=== PATIENT | female | born 1945 | race Caucasian/White ===

== ENCOUNTER 2024-12-09 13:19 | Emergency (ER) | payer OTHER, SELFPAY ==
[2024-12-09 13:23] VITALS: BP 162/74
[2024-12-09 13:54] LABS: Hematocrit 37.6 % (37.0-47.0); Hemoglobin 12.7 g/dL (12.0-16.0); Mean Corp Hgb Conc. 33.8 g/dL (33.0-37.0); Mean Corpuscular Volume 92.2 fL (81.0-99.0); Nucleated Red Blood Cells % 0 %; Platelet Count 221 10^3/uL (130-400); Red Cell Dist. Width 13.1 % (11.5-14.5)
[2024-12-09] MEDS: KEPPRA 1500 MG IV (13:55)
[2024-12-09] MEDS: CARDENE 200 IV (13:55)
[2024-12-09 14:07] LABS: INR 1.03; PT 13.8 Sec (11.4-14.6)
[2024-12-09 14:08] LABS: APTT 29.0 Sec (23.4-35.0)
[2024-12-09 14:15] VITALS: BP 100/58
[2024-12-09 14:17] LABS: ALT (SGPT) 19 U/L (0-35); AST (SGOT) 24 U/L (14-36); Albumin 3.3 g/dl (3.5-5.0); Alkaline Phosphatase 44 U/L (38-126); Blood Urea Nitrogen 23 mg/dl (7-17); Calcium 9.1 mg/dl (8.4-10.2); Carbon Dioxide 24 mmol/L (22-30); Chloride 109 mmol/L (98-107); Glucose 115 mg/dl (70-99); Potassium 4.2 mmol/L (3.5-5.1); Sodium 138 mmol/L (135-145); Total Protein 5.6 g/dl (6.3-8.2); eGFR > 60.00
[2024-12-09 14:30] VITALS: BP 92/49
[2024-12-09 14:30] LABS: Troponin I < 0.012 ng/ml
--- NOTE | 2024-12-09 14:43 | ED.CVA ---
History of Present Illness
General
Chief Complaint: CVA/TIA Symptoms
Time Seen by Provider: 12/09/24 13:26
Onset of Stroke Symptoms
Onset of symptoms known: Yes
Date of onset of symptoms: 12/09/24
History of Present Illness
History of Present Illness:
79-year-old female with no reported past medical history presenting to the emergency department as a prehospital stroke alert. Patient arrives with who notes that at around 1145, patient was in the kitchen. He heard a loud thud and found
his on the ground. He himself has had a stroke in the past so recognizes symptoms of stroke. He noticed that she was not speaking or moving the right side of her body. Patient is not on any medications. No report of any blood thinners. No
report of any high blood pressure. Patient on arrival is unable to answer any questions given her critical condition.
Past History
Past History
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
ED Past Surgical History: Orthopedic, Tonsilectomy and Urological
Social History
Tobacco: Non-smoker
Alcohol: None
Drug: None
Personal:
Living: with family
Employment: Not employed
Phy Exam
Physical Exam
Physical Exam:
General: Alert, obvious neurologic deficits
HEENT: protecting airway
Neck: appears supple
CV: Normal heart rate, regular rhythm
Resp: No accessory muscle use, no increased work of breathing, lungs clear to auscultation bilaterally
Abd: Soft and non-distended, no tenderness to palpation
Extremities: No deformities, no swelling
Neuro: Awake and responsive to verbal stimuli. However, severely aphasic with right hemiparesis
: deferred
Rectal: deferred
Psych: Normal affect
Skin: Intact
Scores
NIH Stroke Score
Level of Consciousness: 0 - Alert
LOC Questions: 2-Neither correct
LOC Commands: 2-Performs neither correctly
Best Horizontal Gaze: 0-Normal
Visual Gonsales: 0=Normal, no visual loss
Facial Palsy: 1=Minor paralysis
Motor - Right Arm: 4=No movement
Motor - Left Arm: 4=No movement
Motor - Right Le-No movement
Motor - Left Le-No drift 5 seconds
Limb Ataxia: 0-Absent
Sensation: 2-Severe loss
Best Language: 3-Mute/global aphasia
Dysarthria: 2-Severe slurring
Extinction and Inattention: 0-No abnormality
NIH Total Score:: 24
Course
Orders/Labs/Results
Orders:
Orders
12/09/24 13:23
CT HEAD STROKE ALERT W/o Cont Urgent
Comment:
Reason For Exam: R hemiparesis, aphasia
12/09/24 13:26
Electrocardiogram (*1) Stat
Reason for Study: Other
Other Reason for Exam: neuro symptoms
CT HEAD/NECK ANG STROKE ALERT Urgent
Comment:
Reason For Exam: right weakness, aphasia
EKG- Treatment ONCE
12/09/24 13:44
Complete Blood Count/With Diff Urgent
Comprehensive Metabolic Panel Urgent
PTT Urgent
Prothrombin Time Urgent
Troponin I Urgent
12/09/24 13:45
Levetiracetam Injectable [Keppra] 1,500 mg IV NOW STA
12/09/24 13:46
Type+Screen Urgent
12/09/24 14:00
Nicardipine 40 mg/200 ml [Cardene] 40 mg in 200 ml IV PER PROTOCOL
Currently infusing. Continue current dose and titrate:: Yes
Titrate to keep:: Other
Titrate to keep other:: SBP 100-140
Titrate by mg/hr:: 2.5 mg/hr
Frequency of titrations (minutes):: 5-15 minutes
Maximum dose in mg/hr:: 15
Begin to taper infusion when:: Remained at goal for 2hrs
Taper by mg/hr:: 2.5 mg/hr
Frequency of taper (minutes) if patient maintains goal:: every 15-30 minutes
Taper to off?: Yes
If infusion off & no longer maintaining goal:: Contact Provider
Abnormal Lab Results
12/09/24
13:44
WBC 4.5 L 10^3/uL
(4.8-10.8)
RBC 4.08 L 10^6/uL
(4.20-5.40)
MCH 31.1 H pg
(27.0-31.0)
Absolute Lymphs (auto) 1.1 L 10^3/uL
(1.2-3.4)
Chloride 109 H mmol/L
(98-107)
BUN 23 H mg/dl
(7-17)
Glucose 115 H mg/dl
(70-99)
Total Protein 5.6 L g/dl
(6.3-8.2)
Albumin 3.3 L g/dl
(3.5-5.0)
12/09/24 13:44
12/09/24 13:44
Vital Signs
Initial and Last Documented VS:
Initial Vital Signs
Temp Pulse Resp BP Pulse Ox
98.1 F 62 17 162/74 97
12/09/24 13:23 12/09/24 13:23 12/09/24 13:23 12/09/24 13:23 12/09/24 13:23
Last Documented Vital Signs
Temp Pulse Resp BP Pulse Ox
98.1 F 62 14 104/51 99
12/09/24 13:23 12/09/24 14:45 12/09/24 14:45 12/09/24 14:45 12/09/24 14:47
MDM/Problems Addressed
MDM/Problems Addressed:
79-year-old female presenting to the emergency department as a prehospital stroke alert with right-sided weakness and aphasia. Vital signs are significant for high blood pressure.
Patient initially evaluated in examination room, however in keeping with stroke alert, sent immediately back to CT scan. Patient is supported by myself and neurology to CT given severe deficits. Patient yawning on arrival, with ultimate concern
for possible intracranial hemorrhage. Patient is a TNK candidate given timeframe of symptoms. Plan for CT head, CT angio, CT perfusion. NIH stroke scale at this time is greater than 20.
13:30 - Large intraventricular hemorrhage in the left basal ganglia on CT scan, suspect to be from hypertension. Patient with no underlying history of hypertension. Canceling CT perfusion. Will require transfer to a facility with neurosurgery.
Will discuss with family.
13:35 -in discussion with family, would prefer [facility]. Also offered [facility] or any facility of preference in the area that has neurosurgery.
13:45 -Case discussed with Dr. Mckeon from neurosurgery at [facility], accepted to facility. Recommending nicardipine drip for blood pressure control with systolic 100-140. Patient also with some shivering to the upper extremities, suspect be
more so from being cold versus seizure. No involvement to the lower extremities, no eye deviation. Will Keppra load.
14:20 -family updated, pending transfer.
14:50 - Air transport team at bedside. Maintaining airway and stable for transfer
*Pulse Oximetry
SaO2: 99
Oxygen Mode of Delivery: Room air
Patient hypoxic: no
*EKG
Interpreted by ED Provider?: Yes
EKG Intrepretation Date: 12/09/24
EKG Intrepretation Time: 14:43
Interpretation: normal
Heart Rate: 56
Rate: normal
Rhythm: sinus
[place]: normal axis
Interval: normal interval
QRS Pattern: normal QRS
Ischemia: no ischemia
*Critical Care Note
Total Time (30-74mins, 75-104mins- exclusive of procedures): 65
comment:
The high probability of a clinically significant, sudden or life threatening deterioration of the neurologic system(s) required my full and direct attention, intervention and personal management. The aggregate critical care time was 65 minutes. This
time is in addition to time spent performing reported procedures but includes the following:
[x] Data Review and interpretation
[x] Patient assessment and monitoring of vital signs
[x] Documentation
[x] Medication orders and management
ED Attending Note
-
Portions of this chart may have been created with voice recognition software.� Occasional wrong word or��sound alike� substitutions may have occurred due to the inherent limitations of voice recognition software.
Discharge Plan
Departure
Patient Disposition: Acute Care Hospital
Date of Disposition: 12/09/24
Time of Disposition: 14:41
Discharge Problem:
Spontaneous intraparenchymal intracranial hemorrhage, acute, Acute right hemiparesis, Aphasia
Prescriptions:
No Action
acetaminophen [Acetaminophen Extra Strength] 500 mg tablet
1,000 mg PO Q6H Qty: 30 0RF
Rx Instructions:
DO NOT exceed >4000 mg daily.
Referrals:
UNKNOWN - PT DOES,NOT KNOW [Family Provider]
Hospital Transfer
Other hospital: [facility]
I certify that the patient requires transfer: Yes
Discussed case with accepting physician: Dr. Mckeon
Reason for transfer: specialties available
Interventions
Interventions:
*Risk Screen - Suicide Last Done: 12/09/24 13:54
*General Assessment Last Done: 12/09/24 14:06
*Neglect/Abuse Screening Last Done: 12/09/24 13:54
*ED- Fall Risk Assessment Last Done: 12/09/24 14:06
*ED COVID-19 Vaccine History Last Done: 12/09/24 14:06
*Nursing Disposition Last Done: 12/09/24 15:00
ED- Pulmonary Assessment Last Done: 12/09/24 13:47
ED- Neurological Assessment Last Done: 12/09/24 13:47
ED- Cardiac Assessment Last Done: 12/09/24 13:47
ED Swallowing Screen Last Done: 12/09/24 13:47
Discharge Date and Time
Discharge Date/Time: 12/09/24 15:02
Print Language: ALBANIAN
[2024-12-09 14:45] VITALS: BP 104/51
== END 2024-12-09 15:02 | disposition short-term general hospital (02) ==
LOC: EMR 13:19
PROVIDERS: EMERGENCY PHYSICIAN Student in an Organized Health Care Education/Training Program
DX: G81.91 Hemiplegia, unspecified affecting right dominant side (principal); R47.01 Aphasia; Z86.73 Personal history of transient ischemic attack (TIA), and cerebral infarction without residual deficits
CPT/HCPCS: 99284; 96374; 70450; 70496; 70498; 80053; 84484; 85025; 85610; 85730; 86850; 86900; 86901; 93005; Q9967

== ENCOUNTER 2024-12-23 12:56 | Inpatient (IN) | payer OTHER, SELFPAY ==
[2024-12-22 19:07] LABS: Hematocrit 45.3 % (37.0-47.0); Hemoglobin 15.7 g/dL (12.0-16.0); Mean Corp Hgb Conc. 34.7 g/dL (33.0-37.0); Mean Corpuscular Volume 89.5 fL (81.0-99.0); Nucleated Red Blood Cells % 0 %; Platelet Count 337 10^3/uL (130-400); Red Cell Dist. Width 12.9 % (11.5-14.5)
[2024-12-22 19:14] LABS: INR 1.03; PT 13.8 Sec (11.4-14.6)
[2024-12-22 19:15] LABS: APTT 26.8 Sec (23.4-35.0)
--- NOTE | 2024-12-22 19:25 | ED.GENMED ---
History of Present Illness
General
Chief Complaint: Rectal Bleeding
Source: patient
Exam Limitations: none
Time Seen by Provider: 12/22/24 19:13
Nursing documentation reviewed up to this point in time: agreed with
History of Present Illness
History of Present Illness:
Note:
CHIEF COMPLAINT(S)
Unexplained dark stools, potential concern for gastrointestinal bleeding.
HISTORY OF PRESENT ILLNESS
The patient is an 79-year-old female with a past medical history of stroke with aphasia and right-sided weakness, peptic ulcer disease,who presents with dark stools noticed after lunch. provides most of history as patient is somewhat
limited in her speech due to recent stroke. Patient is currently staying in a rehab facility for stroke care and rehab. She is able to shake her head yes and no to certain questions. Per EMS, staff was changing her and noticed that the stools are
described as 'pretty dark.' There was some blood noted. There are no associated symptoms of dizziness, lightheadedness, abdominal pain, or fever reported. There is no associated syncopal episodes. The patient did not report recent fevers and her
appetite has been stable, as she continues to eat soft foods. A past stomach bleed was mentioned, attributed to a medication, although the specific medication name was not recalled. The patient has a history of stroke two years ago, treated at [facility], resulting in some residual weakness and speech difficulties. The patient has not followed up with Dr. James, her former physician, for approximately one and a half to two years.
ADDITIONAL HISTORY OBTAINED FROM SOURCES OTHER THAN THE PATIENT
The staff noted a change in stool color, leading to the patients presentation for evaluation. No dizziness or lightheadedness was reported by caregivers.
CHRONIC MEDICAL CONDITIONS SIGNIFICANTLY AFFECTING CARE
- History of stroke with residual motor and speech deficits.
PHYSICAL EXAM
- Nursing notes reviewed and vital signs reviewed.
General: Patient is well appearing and in no acute distress; non-toxic
Skin: Warm and dry, no rashes or lesions
Head: Normocephalic, atraumatic
Eyes: Sclera non-icteric. EOMs intact.
Cardiac: Tachycardia noted otherwise regular rhythm, no murmurs
Peripheral Vascular: No lower extremity swelling or edema
Pulm: Normal respiratory effort, no wheezes, rales, rhonchi
Abdomen: No abdominal tenderness to palpation no abdominal distention
Genitourinary: Large volume of heme positive dark stool mixed with clots of blood and bleeding noted. No evidence of hemorrhoids, no anal lesions.
Neuro: CN II-XII intact, no focal neurologic deficits.
Psychiatric: Appropriate mood and affect.
PLAN
- Perform blood work to assess any signs of bleeding.
- Conduct stool tests to detect hidden blood.
- Consider observation for any signs of ongoing bleeding.
DIFFERENTIAL DIAGNOSIS
The Differential Diagnosis includes, in no particular order and is not limited to:
1. Gastrointestinal bleeding.
2. Peptic ulcer bleed.
3. Colonic polyps or malignancy.
4. Diverticulosis.
5. Gastritis.
6. Esophagitis.
7. Coagulation disorder.
8. Iron supplements or bismuth ingestion.
9. Hemorrhoidal bleeding.
10. Ischemic bowel disease.
CHART REVIEW
Reviewed ER physician documentation from 12/09/2024 patient seen for prehospital stroke alert, large intraventricular hemorrhage seen on CT on the left side and she was transferred to facility with neurosurgery
Reviewed discharge summary from 10/06/2022 patient seen for peptic ulcer disease with active GI hemorrhage
MDM/DISPOSITION
The patient is an 79-year-old female with a past medical history of stroke with aphasia and right-sided weakness, peptic ulcer disease,who presents with dark stools noticed after lunch. On my exam in the evening, patient appears to have some
tachycardia noted in lower blood pressure. She has a previous history of upper GI bleed secondary to Ulcer/duodenal ulcer from frequent NSAID use. She is given IV fluids and Protonix. She has no abdominal tenderness distention but does have a
large volume of stool within the rectal vault with scattered blood and clots noted. No indication for CTA at this time. Case the ED attending. Patient will require further admission for observation and trending hemoglobin. Discussed case with
patient and family, patient excepted by hospitalist for admission.
Past History
Past History
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
ED Past Surgical History: Orthopedic, Tonsilectomy and Urological
Social History
Tobacco: Non-smoker
Alcohol: None
Drug: None
Personal:
Living: with family
Employment: Not employed
Phy Exam
Physical Exam
Physical Exam:
see hpi
Course
Orders/Labs/Results
Orders:
Orders
12/22/24 18:24
EKG [Electrocardiogram (*1)] Urgent
Reason for Study: Chest Pain
EKG- Treatment ONCE
12/22/24 18:54
Basic Metabolic Panel Urgent
Complete Blood Count/With Diff Urgent
PTT Urgent
Prothrombin Time Urgent
12/22/24 19:42
0.9% Sodium Chloride 1000 ml [Nss] 1,000 ml IV BOLUS
12/22/24 20:46
Pantoprazole [Protonix IV] 40 mg IV NOW STA
12/22/24 21:22
Type+Screen Urgent
BBK Wristband Number:
12/22/24 21:28
Admit/Transfer Patient As Directed
Co-Sign Provider:
Level of Care: Observation services
Assign to:: Telemetry
Physician / Group: Perez
Diagnosis: GI bleed
Reason for Telemetry: Other
Other Reason for Telemetry: GI bleed
Date to Stop Telemetry: 12/24/24
Time to Stop Telemetry: 11:00
Code Status As Directed
Resuscitation Status: Do not resuscitate
Reached after discussion with pt or family/Healthcare POA: Yes
PRN Pain Medication Management As Directed
May give lesser potent ordered pain med per pt: Yes
preference::
Protocol:: Medication orders for pain may be administered in a
manner that supports deferring to patient preference
when the pt is:
- Requesting an ordered lesser potent pain medication.
Least to most potent pain medications are defined
as: acetaminophen < NSAID < tramadol < opioids
(morphine, oxycodone, hydromorphone).
- Requesting a lesser dose of the same medication IF
ORDERED.
- Requesting a less intrusive route of administration
if both routes are prescribed by the provider (PO <
IV).
12/22/24 21:29
DNR Bracelet Application ONCE
12/23/24 00:17
Acetaminophen [Tylenol] 650 mg PO Q6HPRN PRN
Dextrose 5%/0.45%Sodchl 1000ML [D5/0.45%NaCl] 1,000 ml IV 75 mls/hr
Ondansetron Injectable [Zofran] 4 mg IV Q6HPRN PRN
12/23/24 00:17
Activity As Directed
Activity Level: With Assistance
INT (Intravenous Needle Therapy) As Directed
Comment: Place 2 IV catheters of the largest bore possible until stable
Orthostatic Vital Signs As Directed
Orthostatic VS Frequency: Now
Comment: then every four hours for twenty-four hours
Pneumatic Compression Sleeves As Directed
Type: Knee high
Vital Signs As Directed
Frequency: q8h
DX Deep Vein Thrombosis Video Routine
12/23/24 00:41
H&H Q6H
12/23/24 Breakfast
Clear Liquid
Liquid Modification: Moderately Thick (Honey)
Basic Metabolic Panel IN AM
12/23/24 06:17
H&H Q6H
12/23/24 08:00
Levetiracetam [Keppra] 1,500 mg PO BID
Pantoprazole [Protonix IV] 40 mg IV BID
12/23/24 12:17
H&H Q6H
12/24/24 11:00
DC Protocol for Telemetry ONCE
Abnormal Lab Results
12/22/24
18:54
MPV 10.5 H fL
(7.4-10.4)
Absolute Neuts (auto) 6.9 H 10^3/uL
(1.4-6.5)
Absolute Monos (auto) 0.7 H 10^3/uL
(0.1-0.6)
Lymphocytes % 15.7 L %
(20.5-51.1)
Chloride 110 H mmol/L
(98-107)
Carbon Dioxide 21 L mmol/L
(22-30)
BUN 29 H mg/dl
(7-17)
Glucose 146 H mg/dl
(70-99)
12/22/24 18:54
12/22/24 18:54
Vital Signs
Initial and Last Documented VS:
Initial Vital Signs
Temp
98.3 F
12/22/24 18:24
Last Documented Vital Signs
Temp Pulse Resp BP Pulse Ox
97.6 F 87 14 131/76 99
12/23/24 00:21 12/23/24 00:21 12/23/24 00:21 12/23/24 00:21 12/23/24 00:21
*Pulse Oximetry
Patient hypoxic: no
*Critical Care Note
Total Time (30-74mins, 75-104mins- exclusive of procedures): Not Applicable
ED Attending Note
-
Portions of this chart may have been created with voice recognition software.� Occasional wrong word or��sound alike� substitutions may have occurred due to the inherent limitations of voice recognition software.
Discharge Plan
Departure
Patient Disposition: Admit
Date of Disposition: 12/22/24
Time of Disposition: 20:51
Admit to: Med/Surg
Presentation/result/management discussed w/ accepting MD/DO: Hospitalist
Condition: Fair
Discharge Problem:
Acute gastrointestinal bleeding
Interventions
Interventions:
*Risk Screen - Suicide Last Done: 12/22/24 21:29
*General Assessment Last Done: 12/22/24 18:24
*Neglect/Abuse Screening Last Done: 12/22/24 20:11
*ED- Fall Risk Assessment Last Done: 12/22/24 18:24
*ED COVID-19 Vaccine History Last Done: 12/22/24 21:29
*Nursing Disposition Last Done: 12/22/24 23:36
ZE-Pfsmxy-Tcobxippye Assessment Last Done: 12/22/24 20:11
ED- Cardiac Assessment Last Done: 12/22/24 20:11
ED- Pulmonary Assessment Last Done: 12/22/24 20:11
Discharge Date and Time
Discharge Date/Time: 12/22/24 23:37
[2024-12-22 19:34] LABS: Blood Urea Nitrogen 29 mg/dl (7-17); Calcium 10.0 mg/dl (8.4-10.2); Carbon Dioxide 21 mmol/L (22-30); Chloride 110 mmol/L (98-107); Glucose 146 mg/dl (70-99); Sodium 140 mmol/L (135-145); eGFR > 60.00
[2024-12-22 20:11] VITALS: BP 141/66
[2024-12-22] MEDS: NSS 1000 IV (20:33)
--- NOTE | 2024-12-22 21:05 | HPS.HSE ---
Family Physician
-
Family Physician: Anson Altamirano
Chief Complaint
-
Hematochezia
History of Present Illness
This is a 79-year-old female with past medical history of CVA, hemorrhagic with right-sided hemiparesis and aphasia coming into the emergency department with rectal bleeding.
She was staying at [facility] for rehab and staff was changing her earlier and they noticed darker colored stool but no buzz blood. According to daughter will also help to story, the nursing staff noticed that the stool was very very dark and it was
heme positive on occult testing. In the ED she had large amount of heme positive stool with visible clots and streaks of blood. No hemorrhoids.
She denies having any abdominal pain. She denies abdominal pain, nausea or vomiting. She denies feeling dizzy or lightheaded.
Patient had a CVA on 12/09/2024 with dense aphasia and right-sided hemiparesis. Found to have a large intraventricular hemorrhage in the left basal ganglia on CT scan, suspect to be from hypertension. She was transferred to [place]. She was
placed on seizure prophylaxis with Keppra 1.5g bid. She was started on amlodipine for blood pressure control and was started on a statin. Patient is not taking any thinners and is not on any aspirin.
She had a history of peptic ulcer disease that was thought to be secondary to medications status post EGD in 2022 showing a healing ulcer. They have not been seen any melena. She had no prior episodes of diarrhea or bloody bowel movements.
Vital signs are stable in the ED with a blood pressure of 140/66 and a pulse of 86 and she was satting 97% on room air. ECG shows sinus rhythm at a rate of 97 with frequent PVCs. Hemoglobin is 15.7 with normal platelet counts and normal WBCs. INR
was 1.0. Electrolytes were all normal. BUN was 29 with creatinine 0.7 and a glucose of 140.
Medical History
Past Medical History
Past Medical History: Reports CVA (Hemorrhagic stroke with residual Aphasia, right hemiparesis) and Other (osteoarthritis, first-degree AV block, CKD stage III, osteopenia, history of urologic abnormality status post surgery, peptic ulcer disease)
Past Surgical History: Reports None
Social History
Tobacco: Non-smoker
Alcohol: None
Drug: None
Family History
Family History: Not pertinent
Allergies / Home Medications
Allergies reflects when Allergies were last updated in [facility].
Home Medications with original date entered in [facility]
Allergy/Medication List:
Allergies
Allergy/AdvReac Type Severity Reaction Status Date / Time
latex Allergy mild red Verified 09/30/22 12:31
rash
oxycodone AdvReac Nausea / Verified 09/30/22 12:31
Vomiting
Home Medications
Amlodipine 5 mg tablet, 5 mg p.o. daily
Keppra 500 mg tablet, 500 mg p.o. twice daily
Review of Systems
-
Constitutional: Reports No Symptoms
EENT: Reports No Symptoms
Respiratory: Reports No Symptoms
Cardiac: Reports No Symptoms
Abdomen/GI: Reports Bloody Stools
: Reports No Symptoms
Musculoskeletal: Reports No Symptoms
Skin: Reports No Symptoms
Neurological: Reports No Symptoms
Endocrine: Reports No Symptoms
Hematologic/Lymphatic: Reports No Symptoms
Psych: Reports No Symptoms
Physical Exam
Vital Signs
Vital Signs
Temp Pulse Resp BP Pulse Ox
98.3 F 86 20 141/66 97
12/22/24 18:24 12/22/24 20:11 12/22/24 20:11 12/22/24 20:11 12/22/24 20:11
Physical Exam
General: Well Developed, Well Nourished and No Apparent Distress
HEENT: NormoCephalic, Moist mucous membranes and Atraumatic
Respiratory: Clear
Cardiac: S1/S2 and Regular Rhythm; No Murmur or Rub
GI: Soft, Non Tender, Non Distended and Normal Bowel Sounds; No Organomegaly
Rectal: Deferred by Provider
Musculoskeletal: No Clubbing, No Cyanosis and No Edema
Skin: No Rash
Neuro: Awake, AO x 3, Slurred Speech (dense aphasia, barely speaking), Facial Droop (right sided facial droop) and Other (right sided weakness); No No Motor Deficits
Hematologic/Lymphatic: No Lymphadenopathy
Psych: Calm
Laboratory Results
-
12/22/24 18:54
12/22/24 18:54
Laboratory Results
PT 13.8 Sec (11.4-14.6) 12/22/24 18:54
INR 1.03 12/22/24 18:54
APTT 26.8 Sec (23.4-35.0) 12/22/24 18:54
Total Bilirubin Cancelled 12/22/24 18:54
AST Cancelled 12/22/24 18:54
ALT Cancelled 12/22/24 18:54
Alkaline Phosphatase Cancelled 12/22/24 18:54
Data Reviewed
-
Medical Tests (Nuc Med, Echo, EKG etc): Image Personally Visualized and interpreted
Lab Data: Labs Reviewed by me
Old Records: Reviewed
Impression/Plan
-
IMPRESSION:
79-year-old with recent hemorrhagic CVA was not currently on any thinners and no aspirin use presenting to the emergency department after being found to have dark heme positive bowel movements by rehab staff. Examination in the ED she had heme
positive stool with visible clots and streaks of blood. No hemorrhoids noted. H/o PUD dz thought secondary to NSAID s/p knee surgery in 2022 but weaned off PPI. Given presence of clots and streaks of blood the concern is also concern for lower GI
bleed.
PLAN:
GI bleed - Possible melena but cannot rule out lower GI bleed. H/O PUD. Confirmed no recent aspirin and No thinners.
- admit to telemetry
- type and screen and consent
- will start IV ppi bid for now
- clear liquid diet and gentle maintenance fluids
- hold all thinners and aspirin for now
- hold antihypertensives
- H&H q 6 h. Transfuse for profound bleeding, HD instability or Hgb < 8
- GI consultation
CVA - Hemorrhagic CVA
- continue sz ppx with keppra 1500
- restart statin when tolerating po
- holding amlodipine for now
DVT PPX - SCDs for now
Code Status - DNR
[2024-12-22] MEDS: PROTONIX IV 40 MG IV (21:32)
[2024-12-23] VITALS (8 sets, daily range): BP systolic 125–174; BP diastolic 69–99; PULSE 101
--- NOTE | 2024-12-23 | PTCARENOTE ---
Pt arrives from ED on stretcher. Pulled over to bed. patient Awake and responds to some stimuli. pt nonverbal, unable to answer any questions but can follow some simple commands. patient assessed, vitals obtained, see flowsheets. Call aragon within
reach. Safety maintained, will continue to monitor.
[2024-12-23] MEDS: D5/0.45%NACL 1000 IV ×2 (00:34→15:35)
[2024-12-23 00:51] LABS: Hematocrit 41.2 % (37.0-47.0); Hemoglobin 14.0 g/dL (12.0-16.0)
[2024-12-23 07:31] LABS: Hematocrit 43.3 % (37.0-47.0); Hemoglobin 15.0 g/dL (12.0-16.0)
[2024-12-23 07:54] LABS: Blood Urea Nitrogen 25 mg/dl (7-17); Calcium 9.6 mg/dl (8.4-10.2); Carbon Dioxide 23 mmol/L (22-30); Chloride 110 mmol/L (98-107); Glucose 107 mg/dl (70-99); Potassium 3.9 mmol/L (3.5-5.1); Sodium 140 mmol/L (135-145); eGFR > 60.00
[2024-12-23] MEDS: PROTONIX IV 40 MG IV ×2 (08:09→19:48)
[2024-12-23] MEDS: NSS (PRESERVATIVE FREE) 10 ML IV ×2 (08:09→19:48)
--- NOTE | 2024-12-23 09:03 | CON.GI ---
Consultation
-
Date/Time Consultation Requested: 12/23/2024, 3am
Date/Time Consultation Performed: 12/23/2024, 10am
Requesting Provider: Dr. Todd
Performing Provider: Dr. Durham
Reason for Consultation: gib
Medical History
Chief Complaint / HPI
Chief Complaint: hematochezia
History of Present Illness:
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 Patient unable to give history. D/w daughter - states was told at [place] [facility] had dark stool, was not called bright red blood until ER here. skilled nursing called family
with report of dark stool but stated could not check Hb until Tue because weekend and asked if they wanted to go to hospital and given prior history of GIB they opted to send her in. No NSAIDs - prior ulcer from NSAIDs.
EGD 2022 Dr. James gastric ulcer injected, clipped repeat showed healing 3 months later.
Past Medical History
Past Medical History: CVA, Renal Failure (ckd III) and Other (osteoarthritis, first-degree AV block, osteopenia, PUD)
Past Surgical History: Urological
Social History
Tobacco: Non-Smoker
Alcohol: None
Drug: None
Family History
Family History: Reviewed & Not Pertinent
Allergies / Home Medications
Allergy/AdvReac Type Severity Reaction Status Date / Time
latex Allergy mild red Verified 12/09/24 14:05
rash/ITCHING
oxycodone Allergy Nausea / Verified 12/09/24 14:05
Vomiting
�Medication �Instructions �Recorded
acetaminophen 500 mg tablet 1,000 mg (2 x 500 mg) PO Q6H #30 02/12/22
(Acetaminophen Extra Strength) tabs
Review of Systems
-
Unable to obtain full review of systems at this time due to: Patient Non Verbal
Vital Signs
Temp Pulse Resp BP Pulse Ox
99.7 F 91 16 157/89 98
12/23/24 07:00 12/23/24 07:00 12/23/24 07:00 12/23/24 07:00 12/23/24 07:00
Physical Exam
Exam
General: Well Developed
HEENT: Normocephalic
Cardiac: S1/S2
GI: Non Tender and Non Distended
Rectal: Other (brown mixed with blood, same pain with exam, hemorrhoids, no fissure seen)
Musculoskeletal: No Clubbing
Skin: Warm
Neuro: Awake
Psych: Calm
Results
WBC 9.2 10^3/uL (4.8-10.8) 12/22/24 18:54
Hgb 15.0 g/dL (12.0-16.0) 12/23/24 06:31
Hct 43.3 % (37.0-47.0) 12/23/24 06:31
MCV 89.5 fL (81.0-99.0) 12/22/24 18:54
Plt Count 337 10^3/uL (130-400) 12/22/24 18:54
Absolute Neuts (auto) 6.9 10^3/uL (1.4-6.5) H 12/22/24 18:54
PT 13.8 Sec (11.4-14.6) 12/22/24 18:54
INR 1.03 12/22/24 18:54
APTT 26.8 Sec (23.4-35.0) 12/22/24 18:54
Sodium 140 mmol/L (135-145) 12/23/24 06:31
Potassium 3.9 mmol/L (3.5-5.1) 12/23/24 06:31
Chloride 110 mmol/L (98-107) H 12/23/24 06:31
Carbon Dioxide 23 mmol/L (22-30) 12/23/24 06:31
BUN 25 mg/dl (7-17) H 12/23/24 06:31
Creatinine 0.7 mg/dL (0.6-1.0) 12/23/24 06:31
Calcium 9.6 mg/dl (8.4-10.2) 12/23/24 06:31
Total Bilirubin Cancelled 12/22/24 18:54
AST Cancelled 12/22/24 18:54
ALT Cancelled 12/22/24 18:54
Alkaline Phosphatase Cancelled 12/22/24 18:54
Diagnostic Image Results:
Prior GI Procedures:
EGD:
Colonoscopy:
Assessment / Plan
-
79 yo F pmh CVA here with brown mixed with blood with Hb 15.
Suspect anorectal etiology - possible fissure with pain.
Unclear why report of black stool but no black stool today and Hb stable.
I reached out to pharmacy about possible cream either nifedipine/lido or nitro/lido. They likely only have lido - if this is case we will do that now and if possible would have facility do nifedipine/lido or rectiv bid x4 weeks.
Will add sitz baths.
Low suspicion for UGIB but can do protonix 40 bid x 2 weeks then daily x2 weeks then stop if Hb stable.
Avoid all NSAIDs if needs NSAIDs recommend PPI prophylaxis.
I d/w daughter and - only want procedures if urgent/emergent and with hb stable not urgent at this time.
Clear liquid today, regular diet tomorrow.
D/w hospitalist. GI will sign off at this time please call with ?s or changes in status. If Hb stable tomorrow ok DC GI POV.
-
-
Thank you for consultation and allowing me to participate in the patient's care. Please call the sales operations associate GI physician during the after hours with any questions or concerns.
[2024-12-23] MEDS: KEPPRA 1500 MG IV ×2 (09:25→19:48)
[2024-12-23 11:43] LABS: Urine Character Clear (Clear)
--- NOTE | 2024-12-23 11:47 | W.PN.HOSP.TC ---
Today's Communication/Plan
-
Rocephin for UTI
monitor LGIB; monitor Hb; follow GI recs
await communication from NeuroSx service about CT head findings
Assessment / Plan
Assessment / Plan
Assessment:
lower GI bleed
- brown stool mixed with blood, possible anorectal etiology such as fissure, hemorrhoids
- HB stable
- GI following; Lidocaine cream ordered, Sitz bath ordered
- per GI low suspicion for UGIB; continue Protonix 40 bid x 2 weeks then daily x2 weeks then stop if Hb stable
- Family wants to avoid procedures unless urgent/emergent
- diet: clears
Encephalopathy possibly from UTI
- start Rocephin 2g q24h - await urine culture
Lethargy
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
- known large 3.6 cm acute hemorrhage 12/09 - required transfer to [facility] (Dr. Mckeon)
- repeat CT today: Continued evolution of a intraparenchymal hemorrhage in the left basal ganglia and left thalamus compared to the head CT from 12/09/2024. No new acute intracranial abnormality.
- tiger-text communicated with Dr. Mckeon to review images; await his recs
- BP control normotensive
- continue IV Keppra 1.5g BID for seizure prophylaxis
DVT ppx: SCDs
Code: DNR/DNI
Anticipated Discharge: > 48 hours
Subjective/Interval History
-
Date of Service: December 23, 2024
lethargic but arousable
Hb stable
Objective Data
-
Labs:
Laboratory Results
12/23/24 12/23/24 12/23/24
00:41 06:31 12:17
Hgb 14.0 15.0 Pending
Hct 41.2 43.3 Pending
Sodium 140
Potassium 3.9
Chloride 110 H
Carbon Dioxide 23
BUN 25 H
Creatinine 0.7
Glucose 107 H
Calcium 9.6
Vital Signs:
Vital Signs
Temp Pulse Resp BP Pulse Ox
98.2 F 91 18 153/76 97
12/23/24 11:00 12/23/24 11:00 12/23/24 11:00 12/23/24 11:00 12/23/24 11:00
Physical Exam
-
General: No Apparent Distress
HEENT: Normocephalic and Atraumatic
Respiratory: Negative Wheezes
Cardiac: Regular Rhythm and S1/S2
GI: Soft
Genito-urinary: No Costovertebral Tender
Neuro: Other (lethargic)
Psych: Calm
Data Reviewed
-
Total Time Spent with Patient (in minutes): 45
CT Scan: Report Reviewed by me
Labs: Labs Reviewed by me
[2024-12-23 12:38] LABS: Urine Red Blood Cell 0-2 /HPF (0-2)
[2024-12-23 12:43] LABS: Hematocrit 42.8 % (37.0-47.0); Hemoglobin 15.0 g/dL (12.0-16.0)
[2024-12-23] MEDS: APRESOLINE 5 MG IV (13:23)
[2024-12-23] MEDS: ROCEPHIN 2000 MG IV (13:23)
[2024-12-23] MEDS: STERILE WATER FOR INJECTION 20 ML IV (13:23)
--- NOTE | 2024-12-23 14:09 | W.PN.UPDATE ---
Update Note
Progress Note Update
Dr. Mckeon (Neurosurgery) communicated that he reviewed CT scans and felt todays CT scan represents expected evolution of prior [employer] hemorrhage. No acute bleeding.
--- NOTE | 2024-12-23 15:11 | CM ---
CM reviewed chart, patient seen bedside with spouse, initial assessment completed by . Patient admitted from [facility], confirms paying for bed hold at [place]. reports prior to [facility], patient was at [facility]
for several days, patient was denied acute rehab and discharged to [facility]. Prior to hospitalizations, patient resides at home with in multiple level home, three steps to enter. reports patient is requiring a kirstin lift at this time.
PCP Anson Altamirano, pharmacy [facility], confirms prescription coverage. CM will send referral to [place] via [facility]. CM will continue to follow for all discharge planning needs.
Plan; return to [facility] when stable, will require insurance auth
[2024-12-23] MEDS: TYLENOL/FEVERALL 325 MG RECTAL (17:06)
[2024-12-24] VITALS (9 sets, daily range): BP systolic 119–157; BP diastolic 61–92; PULSE 85–90
[2024-12-24] MEDS: TYLENOL/FEVERALL 325 MG RECTAL (03:19)
[2024-12-24 05:59] LABS: Hematocrit 40.6 % (37.0-47.0); Hemoglobin 13.9 g/dL (12.0-16.0); Mean Corp Hgb Conc. 34.2 g/dL (33.0-37.0); Mean Corpuscular Volume 90.6 fL (81.0-99.0); Platelet Count 282 10^3/uL (130-400); Red Cell Dist. Width 12.9 % (11.5-14.5)
[2024-12-24] MEDS: D5/0.45%NACL 1000 IV (06:00)
[2024-12-24 06:21] LABS: Blood Urea Nitrogen 15 mg/dl (7-17); Calcium 9.4 mg/dl (8.4-10.2); Carbon Dioxide 23 mmol/L (22-30); Chloride 107 mmol/L (98-107); Estimated Creatinine Clearance 44 ml/min; Glucose 113 mg/dl (70-99); Potassium 3.7 mmol/L (3.5-5.1); Sodium 137 mmol/L (135-145); eGFR > 60.00
[2024-12-24] MEDS: KEPPRA 1500 MG IV ×2 (08:01→20:19)
[2024-12-24] MEDS: NSS (PRESERVATIVE FREE) 10 ML IV ×2 (08:02→20:18)
[2024-12-24] MEDS: PROTONIX IV 40 MG IV ×2 (08:02→20:18)
[2024-12-24] MEDS: TOPROL XL 12.5 MG PO (10:20)
[2024-12-24] MEDS: ROCEPHIN 2000 MG IV (13:43)
[2024-12-24] MEDS: STERILE WATER FOR INJECTION 20 ML IV (13:43)
--- NOTE | 2024-12-24 14:44 | W.PN.HOSP.TC ---
Addendum entered and electronically signed by Ruben Agsutin DO 12/24/24 14:58:
Started low-dose metoprolol XL for ventricular trigeminy
Original Note:
Today's Communication/Plan
-
Check EEG
Continue antibiotics and follow culture
Monitor mental status
Assessment / Plan
Assessment / Plan
#Acute metabolic encephalopathy
#Recent ICH with right-sided hemiparesis
-Differentials include breakthrough seizure events, underlying infection (UTI as below), delirium
-Presented with altered mentation, lethargic since recent intracranial hemorrhage
-CT here shows evolution of previous bleed, neurosurgery reviewed imaging and agrees
-Remains on Keppra 1.5 g twice daily, currently given IV due to encephalopathy
-Order EEG to help rule out breakthrough seizures despite Keppra
-Continue to monitor neurochecks
-BP goal normotension
#Urinary tract infection
-Urine analysis and urine culture taken on arrival, started on ceftriaxone 2 g every 24 hours empirically
-Will de-escalate to ceftriaxone 1 g every 24 hours with out concurrent bacteremia
-Trend CBC and temperature curve, follow-up urine culture
#Lower GI bleeding
#H/O PUD
-Suspected to be related to anal fissure as bleeding was associated with rectal discomfort
-Hemoglobin here has been stable, evaluated by GI who recommended vasodilator creams
-Currently receiving LidoCream, plan for lido with nifedipine cream as OP
-Plan 4-week course of twice daily PPI and de-escalate to once daily thereafter
-Avoid NSAIDs with history of PUD
-Trend CBC here
#CKD stage III
-Likely age-related, creatinine baseline 0.8 with GFR in the 40s
-Renal function currently stable, patient appears euvolemic
-Trend BMP here
Diet: CLD for now, maintenance IVF
DVT prophylaxis: SCDs
CODE STATUS: DNR
Anticipated Discharge: > 48 hours
Subjective/Interval History
-
Date of Service: December 24, 2024
Seen and examined at the bedside. No acute events reported overnight. AFVSS this morning
ROS limited by her mental status and aphasia
Labs remain stable
Objective Data
-
Labs:
Laboratory Results
12/24/24
05:14
WBC 8.4
Hgb 13.9
Hct 40.6
Plt Count 282
Sodium 137
Potassium 3.7
Chloride 107
Carbon Dioxide 23
BUN 15
Creatinine 0.8
Glucose 113 H
Calcium 9.4
Vital Signs:
Vital Signs
Temp Pulse Resp BP Pulse Ox
97.9 F 90 16 140/77 94
12/24/24 11:15 12/24/24 11:15 12/24/24 11:15 12/24/24 11:15 12/24/24 11:15
I&O
12/23/24 12/24/24 12/25/24
06:59 06:59 06:59
Intake Total 900 / 900
Balance 900 / 900
Review of Systems
-
Unable to obtain full review of systems at this time due to: Acuity
Physical Exam
-
General: Well Developed, Well Nourished and Appears Chronically Ill
HEENT: Normocephalic, Atraumatic and Moist Mucous Membranes
Respiratory: Clear to Auscultation and Non Labored Respirations; Negative Accessory Resp Muscle Use
Cardiac: Regular Rhythm and S1/S2; Negative Murmur, Rub or Gallop
GI: Soft, Nontender, Nondistended and Normal Bowel Sounds
Musculoskeletal: No Clubbing, No Cyanosis and No Edema
Skin: Warm and Dry; Negative Rash or Jaundice
Neuro: Awake, Alert, Central Nerve's Intact and Other (Right-sided hemiparesis (chronic), expressive aphasia); Negative Tremors
Psych: Calm
Data Reviewed
-
Labs: Labs Reviewed by me and Discussed with Nurse
[2024-12-25] MEDS: D5/0.45%NACL 1000 IV ×2 (01:20→15:57)
[2024-12-25 02:52] VITALS: BP 133/78
[2024-12-25 07:22] LABS: Hematocrit 42.6 % (37.0-47.0); Hemoglobin 14.3 g/dL (12.0-16.0); Mean Corp Hgb Conc. 33.6 g/dL (33.0-37.0); Mean Corpuscular Volume 90.4 fL (81.0-99.0); Nucleated Red Blood Cells % 0 %; Platelet Count 282 10^3/uL (130-400); Red Cell Dist. Width 12.8 % (11.5-14.5)
[2024-12-25 07:30] VITALS: BP 138/76
[2024-12-25 08:04] LABS: Blood Urea Nitrogen 12 mg/dl (7-17); Calcium 9.8 mg/dl (8.4-10.2); Carbon Dioxide 22 mmol/L (22-30); Chloride 111 mmol/L (98-107); Estimated Creatinine Clearance 44 ml/min; Glucose 111 mg/dl (70-99); Potassium 4.0 mmol/L (3.5-5.1); Sodium 139 mmol/L (135-145); eGFR > 60.00
[2024-12-25] MEDS: TOPROL XL 12.5 MG PO (08:37)
[2024-12-25] MEDS: NSS (PRESERVATIVE FREE) 10 ML IV ×2 (08:37→20:07)
[2024-12-25] MEDS: PROTONIX IV 40 MG IV ×2 (08:38→20:07)
[2024-12-25] MEDS: KEPPRA 1500 MG IV ×2 (08:42→20:07)
[2024-12-25 11:21] VITALS: BP 144/77
--- NOTE | 2024-12-25 11:47 | PN.CDI ---
CDI
- -
CDI:
Physician Documentation Request
Admit Date: 12/23/24 12:56
Dear Doctor Vamsi,
Clinical Indicators:
The diagnosis of vasogenic edema was included in the signed Head CT.
12/[address], 'Redemonstration of intraparenchymal hemorrhage centered within the left basal ganglia and left thalamus...Surrounding vasogenic edema with mild localized mass effect on the body of the left lateral ventricle.'
Current medications: Keppra 1500 mg IV BID, Hydralazine IV prn SBP >150.
12/25 PN, 'Presented with altered mentation, lethargic since recent intracranial hemorrhage'
Please indicate in your progress notes if you are in agreement that the above diagnosis is valid for this patient:
Vasogenic edema is valid diagnosis
Vasogenic edema is not a valid diagnosis
Other, please specify
Use of terms such as suspected, likely, concern for, or probable are acceptable for a diagnosis that is being evaluated, monitored or treated as if it exists and can be coded in the inpatient setting, when documented at the time of discharge.
Thank you,
KARINA Acharya RN
CDI Specialist
available via tiger text
Please use your independent medical judgment in providing your response.
--- NOTE | 2024-12-25 12:03 | W.PN.HOSP.TC ---
Addendum entered and electronically signed by Ruben Agustin DO 12/25/24 14:26:
CDI: Vasogenic edema is not a valid diagnosis, more likely evolution typical of ICH
Original Note:
Today's Communication/Plan
-
PT/OT/HOME APPLIANCE TECH
Follow-up EEG
Continue antibiotics
PPI regimen
Metoprolol XL
Assessment / Plan
Assessment / Plan
#Acute metabolic encephalopathy
#Recent ICH with right-sided hemiparesis
-Differentials include breakthrough seizure events, underlying infection (UTI as below), delirium
-Presented with altered mentation, lethargic since recent intracranial hemorrhage
-CT here shows evolution of previous bleed, neurosurgery reviewed imaging and agrees
-Remains on Keppra 1.5 g twice daily, currently given IV due to encephalopathy
-Order EEG to help rule out breakthrough seizures despite Keppra
-Continue to monitor neurochecks
-BP goal normotension
#Urinary tract infection
-Urine analysis and urine culture taken on arrival, started on ceftriaxone 2 g every 24 hours empirically
-Will de-escalate to ceftriaxone 1 g every 24 hours with out concurrent bacteremia
-Trend CBC and temperature curve, follow-up urine culture
#Lower GI bleeding
#H/O PUD
-Suspected to be related to anal fissure as bleeding was associated with rectal discomfort
-Hemoglobin here has been stable, evaluated by GI who recommended vasodilator creams
-Currently receiving LidoCream, plan for lido with nifedipine cream as OP
-Plan 4-week course of twice daily PPI and de-escalate to once daily thereafter
-Avoid NSAIDs with history of PUD
-Trend CBC here
#Ventricular trigeminy
-ECG and telemetry yesterday with PVCs on every third ventricular beat
-Started low-dose metoprolol XL at 12.5 mg daily
-Continue on telemetry
#CKD stage III
-Likely age-related, creatinine baseline 0.8 with GFR in the 40s
-Renal function currently stable, patient appears euvolemic
-Trend BMP here
Diet: CLD for now, maintenance IVF
DVT prophylaxis: SCDs
CODE STATUS: DNR
Anticipated Discharge: Within 24 hours
Subjective/Interval History
-
Date of Service: December 25, 2024
Seen and examined at bedside. No acute events reported overnight. AFVSS this morning
Continues to have significant expressive aphasia that limits conversation
Overall alertness seems stable and improved from previously
Objective Data
-
Labs:
Laboratory Results
12/25/24
06:43
WBC 6.4
Hgb 14.3
Hct 42.6
Plt Count 282
Sodium 139
Potassium 4.0
Chloride 111 H
Carbon Dioxide 22
BUN 12
Creatinine 0.8
Glucose 111 H
Calcium 9.8
Vital Signs:
Vital Signs
Temp Pulse Resp BP Pulse Ox
98.3 F 75 16 144/77 97
12/25/24 11:21 12/25/24 11:21 12/25/24 11:21 12/25/24 11:21 12/25/24 11:21
I&O
12/24/24 12/25/24 12/26/24
06:59 06:59 06:59
Intake Total 900 / 900 150 / 150
Balance 900 / 900 150 / 150
Review of Systems
-
Unable to obtain full review of systems at this time due to: Acuity
Physical Exam
-
General: Well Developed, No Apparent Distress and Appears Chronically Ill
HEENT: Normocephalic, Atraumatic, Moist Mucous Membranes and Anicteric
Respiratory: Clear to Auscultation and Non Labored Respirations; Negative Accessory Resp Muscle Use
Cardiac: Regular Rhythm and S1/S2; Negative Murmur, Rub or Gallop
GI: Soft, Nontender, Nondistended and Normal Bowel Sounds
Musculoskeletal: No Clubbing, No Cyanosis and No Edema
Skin: Warm and Dry; Negative Rash
Neuro: Awake, Alert and Other (Chronic right hemiparesis and expressive aphasia; no new deficits, CN grossly intact)
Psych: Calm
Data Reviewed
-
Labs: Labs Reviewed by me and Discussed with Nurse
--- NOTE | 2024-12-25 12:15 | CM ---
Chart reviewed. Patient stable per hospitalist. PT/OT/HOT MILL WORKER will see patient today
Per [facility] admissions, patient's daughter is paying for a bed hold up until today but will follow up if she would like to continue the bed hold
Patient will need insurance auth prior to returning. CM will initiate auth through [employer] once PT/OT evaluates
Per hospitalist, can plan for potential d/c tomorrow pending auth
Left message w/ daughter, Jeanne
Plan: Return to [place] for STR; pending auth
[2024-12-25] MEDS: ROCEPHIN 1000 MG IV (14:29)
[2024-12-25] MEDS: STERILE WATER FOR INJECTION 10 ML IV (14:30)
[2024-12-25 15:20] VITALS: BP 146/83
--- NOTE | 2024-12-25 15:31 | EEG.RPT ---
Electroencephalogram Report
Recording
Date of EE12/25/24
Type of EEG: Routine
Length of EEG recordin minutes
Done with Video Recording: Yes
Patient Status: Inpatient
Recording Conditions: Awake and Drowsy
Hyperventilation Performed: No
Photic Stimulation Performed: Yes
Report
LESS THAN 1 HOUR EEG REPORT
LESS THAN 1 HOUR EEG INTERPRETATION:
Minimally abnormal study for age based on minimal slowing even for age. No seizure activity demonstrated
CLINICAL CORRELATION:
Although normative values not been established for a person of this advanced age the patient�s symmetry of the background suggests that this study was suggestive of mild bihemispheric cortical dysfunction. No epileptiform features were demonstrated.
If concerns remain regarding epilepsy, prolonged monitoring may be of assistance.
Clinical correlation is advised.
METHODS:
A 21-channel digital electroencephalogram (EEG) was performed. The 10/20 international system of electrode placement was used with ECG and lateral/vertical eye movements recorded. The [employer] quantitative EEG analysis system was performed
IMPRESSION(S):
Quality of study
Fair
Background
Low amplitude
Anterior-posterior voltage gradient differentiation: Fair
Theta frequency maximal background demonstrated
Sleep
Drowsiness present
Hyperventilation
Not performed
Photic Stimulation
Failed to activate the record
ECG
Normal rhythm
Abnormal Activity
None
--- NOTE | 2024-12-25 16:24 | PTOTSP ---
Speech Language Pathology
Pt seen for clinical bedside swallow evaluation. at bedside who provided information. He reported pt had VSE at [facility] a few days after CVA. He is unsure of results but stated she was placed on puree/moderately thick liquids following study.
She remains on this diet at [place] with good tolerance and appetite. This date, P.O. trials of puree and moderately thick liquids via tsp provided. Adequate bolus formation and A-P transit with no oral residue with limited consistencies provided.
No overt signs of aspiration. Offered repeat VSE to to see if any improvement noted in swallow function that would allow liberalizing diet, but declined.
Recommend:
(1) IDDSI Level 4 (Puree) and moderately thick liquids
(2) Aspiration precautions: sit upright, slow rate, liquids via tsp, ensure oral cavity clear post P.O. intake
(3) Meds crushed in puree as able
(4) WEBSPHERE ARCHITECT to follow
[2024-12-25 23:52] VITALS: BP 134/81
[2024-12-26 07:00] VITALS: BP 133/60
[2024-12-26] MEDS: KEPPRA 1500 MG IV (07:58)
[2024-12-26] MEDS: TOPROL XL 12.5 MG PO (07:58)
[2024-12-26] MEDS: PROTONIX IV 40 MG IV (07:59)
[2024-12-26] MEDS: NSS (PRESERVATIVE FREE) 10 ML IV (07:59)
--- NOTE | 2024-12-26 09:06 | CM ---
Addendum entered by Javon Boone 12/26/24 11:51:
Received call from Ally/[facility]. Auth approved beginning today w/ JERALD 01/02
Updated hospitalist and daughter
Updated [facility], requesting 3:30/4pm transport time
Transport forms given to to arrange
IMM verbally reviewed w/ patient, copy provided, copy on chart
[facility]
Report: [phone]

Plan: D/c today to [facility]
Addendum entered by Javon Boone 12/26/24 11:04:
Updated daughter via phone
Spoke w/ Felisa/[facility] who shared auth is still pending at this time, a nurse is currently reviewing. Confirmed receipt of clinicals faxed.
Original Note:
Auth initiated in [facility], pending certification number [id number]
faxed clinicals to [facility] to [phone], will await determination
Plan: [facility], pending auth
[2024-12-26 09:12] VITALS: BP 132/92; PULSE 76; O2SAT 99
--- NOTE | 2024-12-26 10:43 | W.PN.HOSP.TC ---
Today's Communication/Plan
-
Discharge to SNF when insurance approved
Assessment / Plan
Assessment / Plan
#Acute metabolic encephalopathy
#Recent ICH with right-sided hemiparesis
-Differentials include breakthrough seizure events, underlying infection (UTI as below), delirium
-Presented with altered mentation, lethargic since recent intracranial hemorrhage
-CT here shows evolution of previous bleed, neurosurgery reviewed imaging and agrees
-Remains on Keppra 1.5 g twice daily, EEG here was negative
-Continue to monitor neurochecks
-BP goal normotension
-Appears resolved
#Urinary tract infection
-Urine analysis and urine culture taken on arrival, started on ceftriaxone 2 g every 24 hours empirically
-Will de-escalate to ceftriaxone 1 g every 24 hours with out concurrent bacteremia
-Trend CBC and temperature curve, follow-up urine culture
#Lower GI bleeding
#H/O PUD
-Suspected to be related to anal fissure as bleeding was associated with rectal discomfort
-Hemoglobin here has been stable, evaluated by GI who recommended vasodilator creams
-Currently receiving LidoCream, plan for lido with nifedipine cream as OP
-Plan 4-week course of twice daily PPI and de-escalate to once daily thereafter
-Avoid NSAIDs with history of PUD
-Trend CBC here
#Ventricular trigeminy
-ECG and telemetry yesterday with PVCs on every third ventricular beat
-Started low-dose metoprolol XL at 12.5 mg daily
-Continue on telemetry
#CKD stage III
-Likely age-related, creatinine baseline 0.8 with GFR in the 40s
-Renal function currently stable, patient appears euvolemic
-Trend BMP here
Diet: Pur�ed
DVT prophylaxis: SCDs
CODE STATUS: DNR
Anticipated Discharge: Today
Subjective/Interval History
-
Date of Service: December 26, 2024
Seen and examined at bedside. No acute events reported overnight. AFVSS this morning
Continues to have speech deficits though slightly improved, better diversity to words she is able to speak
ROS limited by her expressive aphasia
Objective Data
-
Vital Signs:
Vital Signs
Temp Pulse Resp BP Pulse Ox
98.2 F 72 18 133/60 98
12/26/24 07:00 12/26/24 07:00 12/26/24 07:00 12/26/24 07:00 12/26/24 07:00
I&O
12/25/24 12/26/24 12/27/24
06:59 06:59 06:59
Intake Total 150 / 150 1200 / 1200 120 / 120
Balance 150 / 150 1200 / 1200 120 / 120
Review of Systems
-
Unable to obtain full review of systems at this time due to: Other (Aphasia)
Physical Exam
-
General: Well Developed, Well Nourished, No Apparent Distress and Appears Chronically Ill
HEENT: Normocephalic, Atraumatic, Moist Mucous Membranes, Anicteric and PERRLA
Respiratory: Clear to Auscultation and Non Labored Respirations; Negative Accessory Resp Muscle Use
Cardiac: Regular Rhythm and S1/S2; Negative Murmur, Rub or Gallop
GI: Soft, Nontender, Nondistended and Normal Bowel Sounds
Musculoskeletal: No Clubbing, No Cyanosis and No Edema
Skin: Warm and Dry; Negative Rash
Neuro: Awake, Alert, Oriented and Other (Chronic right sided hemiparesis, expressive aphasia; no new deficits)
Psych: Calm
Data Reviewed
-
Labs: Labs Reviewed by me and Discussed with Nurse
[2024-12-26] MEDS: ROCEPHIN 1000 MG IV (13:06)
[2024-12-26] MEDS: STERILE WATER FOR INJECTION 10 ML IV (13:06)
[2024-12-26 15:00] VITALS: BP 133/70
--- NOTE | 2024-12-26 16:42 | W.DCSUMMARY ---
Discharge Summary
Discharge Data
Date of Admission: 12/23/24
Date of Discharge: 12/26/24
Total time spent discharging patient (in min): 33
-
Pending Results: No
Hospital Course
Discharging Physician : Ruben Agustin DO
Disposition : SNF
Principal Discharge diagnosis :
Lower GI bleeding
Acute metabolic encephalopathy
Urinary tract infection
Ventricular trigeminy
Chronic Discharge diagnosis :
CKD stage III
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
History of peptic ulcer disease
Hospital Course :
79-year-old female that presented to the hospital with altered mental status and bright red blood per rectum. Evaluated by GI and found to have discomfort rectally on examination with suspicion for anal fissure. With history of peptic ulcer
disease she was started on twice daily PPI empirically. NSAIDs were avoided, GI recommended continuing twice daily PPI for 4 weeks before de-escalating to once daily dosing. Recommended topical lidocaine/nifedipine rectally twice daily for anal
fissure related pain.
Noted to have altered mental status upon arrival. Had urinalysis demonstrating signs of infection though urine culture ultimately grew contaminant. She had clinical improvement on IV ceftriaxone, was transition to cefdinir to complete 5 days total
of antibiotics.
Noted to have ventricular trigeminy on telemetry, asymptomatic, for which she was started on metoprolol XL 12.5 mg daily
Lastly, had CT head upon arrival due to recent ICH and change in mental status. CT demonstrated anticipated evolution of her ICH though no signs of acute clinically significant changes. Neurosurgery team was curb sided and reviewed imaging,
recommended against any intervention. Mental status improved, as noted, on antibiotics and with time.
Important imaging findings :
CT head without contrast (12/23/2024)
FINDINGS: Redemonstration of intraparenchymal hemorrhage centered within the left basal ganglia and left thalamus measuring up to 3.8 cm in size, compared to 4.0 cm on the previous CT when measured in a similar plane. Surrounding vasogenic edema
with mild localized mass effect on the body of the left lateral ventricle. Mild age-related parenchymal atrophy. No midline shift, herniation, or hydrocephalus. Mild subcortical, deep, and periventricular white matter low-attenuation, compatible
with changes of chronic small vessel ischemic disease. The imaged paranasal sinuses and mastoid air cells are clear.
Procedure findings : N/A
Follow-up:
Follow-up with family doctor within 1 week of discharge from hospital
Repeat labs while at SNF, 5 to 7 days after discharge
Discharge Plan
-
Patient Disposition: [facility]/SNF
Discharge Diagnosis/Procedures: Acute metabolic encephalopathy
Urinary tract infection
Lower GI bleeding
Ventricular trigeminy
Condition: Fair
Diet: Other diet
Additional Diets: Pur�ed diet
Activity: As tolerated
Driving Restrictions: No driving
Bathing Restrictions: None
Blood Work: BMP, magnesium, CBC with differential 5 to 7 days after discharge from hospital
Other Services: PT, OT and ST
Activity Restrictions/Additional Instructions:
Follow-up with family doctor within one 1 week of discharge from hospital
Referrals:
Anson Altamirano DO [Family Provider, Family Practice]
Additional Discharge Medication Instructions: Continue cefdinir 300 mg every 12 hours for 2 more days after discharge from hospital
Continue pantoprazole 40 mg twice daily for 4 weeks, then after 4 weeks de-escalate to once daily
Continue metoprolol succinate 12.5 mg daily
Continue Keppra 1500 mg twice daily
Avoid NSAIDs
Prescriptions:
New
levetiracetam 500 mg Tablet
1,500 mg PO BID 30 Days Qty: 180 0RF
pantoprazole 40 mg tablet,delayed release (DR/EC)
40 mg PO BID 28 Days Qty: 56 0RF
cefdinir 300 mg capsule
300 mg PO Q12H 2 Days Qty: 4 0RF
metoprolol succinate 25 mg Tablet Extended Release 24 Hr
12.5 mg PO DAILY 30 Days Qty: 15 0RF
Continued
acetaminophen [Acetaminophen Extra Strength] 500 mg tablet
1,000 mg PO Q6H Qty: 30 0RF
Rx Instructions:
DO NOT exceed >4000 mg daily.
Discharge Orders:
Discharge Patient (As Directed); Ordered 12/26/24
Ordered By: Ruben Agustin
Discharge Date and Time
Discharge Date/Time: 12/26/24 16:05
Print Language: CYMRO
== END 2024-12-26 16:05 | DRG 689 ==
LOC: 4 WEST ACU 12:56
PROVIDERS: Internal Medicine; ADMITTING PHYSICIAN Internal Medicine; ATTENDING PHYSICIAN Internal Medicine; CONSULT PHYSICIAN Internal Medicine Gastroenterology; EMERGENCY PHYSICIAN Emergency Medicine; FAMILY PHYSICIAN Family Medicine
DX: N39.0 Urinary tract infection, site not specified (principal); G93.41 Metabolic encephalopathy; G93.6 Cerebral edema; I69.351 Hemiplegia and hemiparesis following cerebral infarction affecting right dominant side; K60.2 Anal fissure, unspecified; I69.320 Aphasia following cerebral infarction; N18.30 Chronic kidney disease, stage 3 unspecified; M85.80 Other specified disorders of bone density and structure, unspecified site; Z91.040 Latex allergy status; I49.3 Ventricular premature depolarization; Z66 Do not resuscitate; Z88.5 Allergy status to narcotic agent; Z87.11 Personal history of peptic ulcer disease
CPT/HCPCS: 70450; 80048; 81003; 81015; 85014; 85018; 85025; 85027; 85610; 85730; 86850; 86900; 86901; 87070; 87086; 87147; 87186; 92610; 93005; 95816; 96361; 96374; 97163; 97167; 97535; 99284

== ENCOUNTER → 2024-12-31 11:27 | Outpatient (REF) | payer OTHER, SELFPAY ==
[2024-12-31 13:44] LABS: ALT (SGPT) 24 U/L (0-35); AST (SGOT) 25 U/L (14-36); Albumin 3.5 g/dl (3.5-5.0); Alkaline Phosphatase 73 U/L (38-126); Blood Urea Nitrogen 16 mg/dl (7-17); Calcium 9.9 mg/dl (8.4-10.2); Carbon Dioxide 27 mmol/L (22-30); Chloride 105 mmol/L (98-107); Glucose 94 mg/dl (70-99); Magnesium 2.0 mg/dl (1.6-2.3); Potassium 4.1 mmol/L (3.5-5.1); Sodium 137 mmol/L (135-145); Total Protein 6.3 g/dl (6.3-8.2); eGFR > 60.00
[2024-12-31 13:47] LABS: Hematocrit 43.0 % (37.0-47.0); Hemoglobin 14.3 g/dL (12.0-16.0); Mean Corp Hgb Conc. 33.3 g/dL (33.0-37.0); Mean Corpuscular Volume 92.9 fL (81.0-99.0); Platelet Count 341 10^3/uL (130-400); Red Cell Dist. Width 13.5 % (11.5-14.5)
== END ==
LOC: OLABWHC 11:27
PROVIDERS: ATTENDING PHYSICIAN Family Medicine
DX: S06.34AD Traumatic hemorrhage of right cerebrum with loss of consciousness status unknown, subsequent encounter (principal); E78.5 Hyperlipidemia, unspecified
CPT/HCPCS: 36415; 80053; 83735; 85027